=== PATIENT | female | born 1980 | race American Indian/Alaskan Native ===

== ENCOUNTER 2018-01-31 17:13 | Emergency (ER) | payer OTHER ==
[2018-01-31 17:29] VITALS: BP 146/85
[2018-01-31] MEDS ORDERED: TORADOL IM ONE (20:25)
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
== END 2018-01-31 21:06 | disposition home or self-care (01) ==
LOC: ED 17:13
DX: S16.1XXA Strain of muscle, fascia and tendon at neck level, initial encounter (principal); S39.012A Strain of muscle, fascia and tendon of lower back, initial encounter; I10 Essential (primary) hypertension; Z88.8 Allergy status to other drugs, medicaments and biological substances; V89.2XXA Person injured in unspecified motor-vehicle accident, traffic, initial encounter; Y93.89 Activity, other specified; Y99.8 Other external cause status; Y92.410 Unspecified street and highway as the place of occurrence of the external cause
CPT/HCPCS: 96372; 99282; J1885

== ENCOUNTER 2021-05-23 09:33 | Outpatient (CLI) | payer MEDICAID ==
--- NOTE | 2021-05-23 11:13 | XRay Report ---
CHEST 2 VIEWS INDICATION: MORBID OBESITY. COMPARISON: none FINDINGS: Support devices: None. Heart: Within normal limits. Lungs/pleura: No acute air space or interstitial disease. No pneumothorax. Additional findings: None. IMPRESSION: Unremarkable chest films. Signer Name: Artur Jefferson Jr, MD Signed: 05/23/2021 11:08 AM Workstation Name: [id number]
--- NOTE | 2021-05-23 11:13 | Fluoroscopy Report ---
BARIUM SWALLOW Indication: MORBID OBESITY. Technique: Single and double contrast barium technique utilized to evaluate the esophagus. FINDINGS: To begin the exam, swallowing was evaluated in the lateral position under direct fluorosco py. Swallowing was normal. No mucosal irregularity, mass, mass effect, or critical stenosis. There were no abnormal tertiary c ontractions as seen with dysmotility. No gastroesophageal reflux. IMPRESSION: Unremarkable exam. Fluoroscopic time: 1.0 minutes Number of fluoroscopic images: 10 Signer Name: Artur Jefferson Jr, MD Signed: 05/23/2021 11:08 AM Workstation Name: [id number]
== END 2021-05-23 09:34 | disposition home or self-care (01) ==
LOC: FLUORO 09:33
PROVIDERS: ATTEND Surgery
DX: E66.01 Morbid (severe) obesity due to excess calories (principal)
CPT/HCPCS: 71046; 74220